=== PATIENT | male | born 1935 | race Caucasian/White ===

== ENCOUNTER 2019-01-31 03:08 | Inpatient (IN) | payer OTHER ==
[~2019-01-31] VITALS: Ht 175.3 cm; Wt 93.9 kg
[2019-01-31 03:14] VITALS: BP_SYST 98
[2019-01-31] MEDS ORDERED: ACETAMINOPHEN 500 MG TABLET PO ONE (03:30)
[2019-01-31] MEDS ORDERED: MUPI1OIN5 TP (03:44)
[2019-01-31] MEDS ORDERED: NOR10 PO (03:44)
[2019-01-31] MEDS ORDERED: NYSCR30 TP (03:44)
[2019-01-31] MEDS ORDERED: ESCI5TAB10 PO (03:44)
[2019-01-31] MEDS ORDERED: DIVA250T PO (03:44)
[2019-01-31] MEDS ORDERED: [UNRECOGNIZED DRUG - OTHER] TP (03:44)
[2019-01-31] MEDS ORDERED: IBUP-1969 PO (03:44)
[2019-01-31] MEDS ORDERED: LOSA50TA3 PO (03:44)
[2019-01-31] MEDS ORDERED: MEMA14CA PO (03:44)
[2019-01-31] MEDS ORDERED: CICL34.62 TP (03:44)
[2019-01-31] MEDS ORDERED: TAMS-11 PO (03:44)
[2019-01-31] MEDS ORDERED: [UNRECOGNIZED DRUG - CODE] TP (03:44)
[2019-01-31] MEDS ORDERED: ECON15CR2 TP (03:44)
[2019-01-31] MEDS ORDERED: GALA12TA4 PO (03:44)
[2019-01-31] MEDS ORDERED: DIVA500T4 PO (03:44)
[2019-01-31] MEDS ORDERED: CICL544C TP (03:44)
[2019-01-31] MEDS ORDERED: LORA-259 PO (03:44)
[2019-01-31] MEDS ORDERED: MORPHINE 4 MG/ML INJ. SYRINGE IVP ONE (04:00)
[2019-01-31] MEDS ORDERED: MORPHINE 4 MG/ML INJ. SYRINGE IM ONE (04:00)
[2019-01-31 04:53] LABS: HEMATOCRIT 36.4 % (36-54); HEMOGLOBIN 12.6 g/dL (14.0-18.0); MEAN CORPUSCULAR HEMOGLOBIN 32 pg (27-31); MEAN CORPUSCULAR HGB CONC 35 % (32-36); MEAN CORPUSCULAR VOLUME 93 fL (79.0-98.0); PLATELET COUNT (AUTO) 203 K/uL (130-430); RED BLOOD CELL COUNT(AUTO) 3.91 MIL/uL (4.2-6.2); WHITE BLOOD COUNT (AUTO) 16.6 K/uL (4.8-10.8)
[2019-01-31 04:59] LABS: ANION GAP 13 (5-15); CALCIUM 8.1 mg/dL (8.4-11.0); CHLORIDE 109 mmol/L (98-107); CREATININE 0.97 mg/dL (0.55-1.30); GLUCOSE 131 mg/dL (70-99); POTASSIUM 3.4 mmol/L (3.5-5.1); SODIUM SERUM 144 mmol/L (136-145); UREA NITROGEN, BLOOD 18 mg/dL (8-21)
[2019-01-31 05:05] LABS: ALANINE AMINOTRANSFERASE 14 U/L (12-78); ALBUMIN 2.6 g/dL (3.4-4.8); ASPARTATE AMINOTRANSFERASE 15 U/L (10-37); TOTAL BILIRUBIN 0.4 mg/dL (0.0-1.0)
[2019-01-31 05:16] LABS: ATYPICAL LYMPHOCYTES % 0 % (0-0); BAND % (MANUAL) 7 % (0-6); LYMPHOCYTES % (MANUAL) 7 % (20-46); MONOCYTES % (MANUAL) 5 % (0-11)
[2019-01-31 05:17] LABS: BASOPHILS % (MANUAL) 0 % (0-2); EOSINOPHILS % (MANUAL) 0 % (0-7); METAMYELOCYTES % 1 % (0-0)
[2019-01-31 06:08] VITALS: BP_SYST 163
[2019-01-31] MEDS ORDERED: ZOLPIDEM TARTRATE 5 MG TABLET PO PRN (06:30)
[2019-01-31] MEDS ORDERED: POTASSIUM CHLORIDE 20 MEQ TAB.PRT.SR PO PRN (06:30)
[2019-01-31] MEDS ORDERED: DOCUSATE SODIUM 100 MG CAPSULE PO PRN (06:30)
[2019-01-31] MEDS ORDERED: MAGNESIUM SULFATE 50 ML IV PRN (06:30)
[2019-01-31] MEDS ORDERED: LORazepam 2 MG/ML VIAL IVP PRN (06:30)
[2019-01-31] MEDS ORDERED: ACETAMINOPHEN 325 MG TABLET PO PRN (06:30)
[2019-01-31] MEDS ORDERED: MUPIROCIN 2% TOPICAL OINTMENT 22 GM NS PRN (06:30)
[2019-01-31] MEDS ORDERED: MORPHINE 2 MG/ML INJ. SYRINGE IVP PRN (06:30)
[2019-01-31] MEDS ORDERED: ONDANSETRON HCL 4 MG/2 ML VIAL IVP PRN (06:30)
[2019-01-31 08:00] VITALS: BP_SYST 136
[2019-01-31] MEDS: MEMANTINE HCL 5 MG TABLET PO SCH ×2 (08:49→21:08)
[2019-01-31] MEDS: NACL 0.9% 1,000 ML IV SCH ×2 (08:49→21:08)
[2019-01-31] MEDS: amLODIPine BESYLATE 10 MG TABLET PO SCH (08:51)
[2019-01-31] MEDS: CITALOPRAM HYDROBROMIDE 20 MG TABLET PO SCH (08:52)
[2019-01-31] MEDS: GALANTAMINE HYDROBROMIDE 4 MG TABLET PO SCH ×2 (08:52→21:07)
[2019-01-31] MEDS: LOSARTAN POTASSIUM 50 MG TABLET (COZAAR) PO SCH (08:53)
[2019-01-31] MEDS: HEPARIN SODIUM,PORCINE 5000 UNITS/ML VIAL SUBCUT SCH ×2 (08:56→21:00)
[2019-01-31] MEDS: MORPHINE 2 MG/ML INJ. SYRINGE IVP PRN ×3 (09:18→19:02)
[2019-01-31 12:00] VITALS: BP_SYST 155
[2019-01-31] MEDS ORDERED: COMMUNICATION ORDER XX ONE (13:45)
[2019-01-31 17:05] VITALS: BP_SYST 142
[2019-01-31 19:27] LABS: INR 1.2 (0.80-1.20); PROTHROMBIN TIME 12.1 SECS (9.5-12.5)
[2019-01-31 19:50] VITALS: BP_SYST 145
[2019-01-31] MEDS: TAMSULOSIN HCL 0.4 MG CAP PO SCH (21:07)
[2019-01-31] MEDS: DIVALPROEX SODIUM 500 MG TAB.SR.24H (DEPAKOTE ER) PO SCH (21:08)
[2019-02-01] VITALS: BP_SYST 151
[2019-02-01 02:18] VITALS: BP_SYST 151; BP_SYST 161
[2019-02-01] MEDS: MORPHINE 2 MG/ML INJ. SYRINGE IVP PRN ×2 (06:05→22:58)
[2019-02-01 06:32] LABS: BASOPHILS % (AUTO) 0.3 % (0.0-2.0); EOSINOPHILS % (AUTO) 0.2 % (0.0-4.0); HEMATOCRIT 31.8 % (36-54); HEMOGLOBIN 10.9 g/dL (14.0-18.0); LYMPHOCYTES # (AUTO) 1.2 K/uL (1.0-5.5); LYMPHOCYTES % (AUTO) 12.9 % (20.5-51.5); MEAN CORPUSCULAR HEMOGLOBIN 33 pg (27-31); MEAN CORPUSCULAR HGB CONC 34 % (32-36); MEAN CORPUSCULAR VOLUME 96 fL (79.0-98.0); MONOCYTES # (AUTO) 0.9 K/uL (0.0-1.0); MONOCYTES % (AUTO) 9.2 % (1.7-9.3); NEUTROPHILS # (AUTO) 7.3 K/uL (1.8-7.7); NEUTROPHILS % (AUTO) 77.4 % (40.0-70.0); PLATELET COUNT (AUTO) 168 K/uL (130-430); RED BLOOD CELL COUNT(AUTO) 3.33 MIL/uL (4.2-6.2); RED CELL DISTRIBUTION WIDTH 14.2 % (9.0-15.0); WHITE BLOOD COUNT (AUTO) 9.4 K/uL (4.8-10.8)
[2019-02-01 06:49] LABS: CALCIUM 8.1 mg/dL (8.4-11.0); CHLORIDE 109 mmol/L (98-107); CREATININE 0.77 mg/dL (0.55-1.30); GLUCOSE 102 mg/dL (70-99); POTASSIUM 4.1 mmol/L (3.5-5.1); SODIUM SERUM 141 mmol/L (136-145); UREA NITROGEN, BLOOD 17 mg/dL (8-21)
[2019-02-01 07:26] LABS: ANION GAP < 3 (5-15)
[2019-02-01 08:00] VITALS: BP_SYST 147
[2019-02-01] MEDS: CITALOPRAM HYDROBROMIDE 20 MG TABLET PO SCH (08:21)
[2019-02-01] MEDS: MEMANTINE HCL 5 MG TABLET PO SCH ×2 (08:22→22:17)
[2019-02-01] MEDS: LOSARTAN POTASSIUM 50 MG TABLET (COZAAR) PO SCH (08:22)
[2019-02-01] MEDS: amLODIPine BESYLATE 10 MG TABLET PO SCH (08:22)
[2019-02-01] MEDS: GALANTAMINE HYDROBROMIDE 4 MG TABLET PO SCH ×2 (08:23→22:25)
[2019-02-01] MEDS ORDERED: BUPIVACAINE /DEX PF 0.75% SPINAL 2 ML AMP INJ ONE (09:55)
[2019-02-01] MEDS ORDERED: POLYMYXIN 500,000/BACIT.10,000 UNITS in NS IRR 1 L IR ONE (09:55)
[2019-02-01] MEDS ORDERED: MIDAZOLAM HCL 5 MG/5 ML VIAL IVP ONE (09:55)
[2019-02-01] MEDS ORDERED: PROPOFOL 200MG/ 20ML VIAL (DIPRIVAN) IV ONE (09:55)
[2019-02-01] MEDS ORDERED: CEFAZOLIN 2 GM IVPB PREMIX 50 ML IV ONE (09:55)
[2019-02-01] MEDS ORDERED: MORPHINE SULFATE 10MG/10ML PF AMP EP ONE (09:55)
[2019-02-01] MEDS ORDERED: LR 1,000 ML IV.SOLN IV ONE (09:55)
[2019-02-01] MEDS ORDERED: MORPHINE SULFATE 10MG/10ML PF AMP SP SCH (11:00)
[2019-02-01] MEDS ORDERED: fentaNYL CITRATE/PF 100 MCG/2 ML AMP IVP PRN ×2 (11:00)
[2019-02-01] MEDS ORDERED: KETOROLAC TROMETHAMINE 60 MG/2 ML VIAL IM PRN (11:00)
[2019-02-01] MEDS ORDERED: NALBUPHINE HCL 10 MG/ML AMP IVP PRN (11:00)
[2019-02-01] MEDS ORDERED: ONDANSETRON HCL 4 MG/2 ML VIAL IVP PRN (11:00)
[2019-02-01] MEDS ORDERED: NALOXONE HCL 0.4 MG/ML AMP (NARCAN) IVP PRN ×2 (11:00)
[2019-02-01] MEDS: NACL 0.9% 1,000 ML IV SCH (11:06)
[2019-02-01 14:33] LABS: BILIRUBIN,URINE NEGATIVE (NEGATIVE); BLOOD, URINE 3+ (NEGATIVE); CLARITY/URINE CLEAR (CLEAR); COLOR,URINE YELLOW (YELLOW); GLUCOSE,URINE NEGATIVE (NEGATIVE); KETONES,URINE NEGATIVE (NEGATIVE); LEUKOCYTE ESTERASE ,URINE 1+ (NEGATIVE); NITRITE, URINE NEGATIVE (NEGATIVE); PH,URINE 5.5 (5.0-8.0); PROTEIN URINE 1+ (NEGATIVE)
[2019-02-01 14:43] LABS: BACTERIA,URINE FEW /HPF (None Seen); MUCUS,URINE 1+ /LPF (None Seen); WBC,URINE 20-50 /HPF (0-3)
[2019-02-01 16:08] VITALS: BP_SYST 120
[2019-02-01 22:08] VITALS: BP_SYST 135
[2019-02-01] MEDS: DIVALPROEX SODIUM 500 MG TAB.SR.24H (DEPAKOTE ER) PO SCH (22:16)
[2019-02-01] MEDS: TAMSULOSIN HCL 0.4 MG CAP PO SCH (22:17)
[2019-02-01] MEDS: DIPHENHYDRAMINE INJ 50 MG/ML VIAL IVP PRN (23:00)
[2019-02-02] VITALS (7 sets, daily range): BP systolic 122–147
[2019-02-02] MEDS: NACL 0.9% 1,000 ML IV SCH ×3 (00:09→20:52)
[2019-02-02] MEDS: DIPHENHYDRAMINE INJ 50 MG/ML VIAL IVP PRN (04:27)
[2019-02-02] MEDS: MORPHINE 2 MG/ML INJ. SYRINGE IVP PRN ×4 (04:27→22:30)
[2019-02-02 07:24] LABS: ANION GAP 4 (5-15); CALCIUM 7.8 mg/dL (8.4-11.0); CHLORIDE 110 mmol/L (98-107); CREATININE 1.07 mg/dL (0.55-1.30); GLUCOSE 88 mg/dL (70-99); SODIUM SERUM 138 mmol/L (136-145); UREA NITROGEN, BLOOD 23 mg/dL (8-21)
[2019-02-02 08:45] LABS: BASOPHILS # (AUTO) 0.2 K/uL (0.0-0.2); BASOPHILS % (AUTO) 0.9 % (0.0-2.0); EOSINOPHILS % (AUTO) 0.3 % (0.0-4.0); HEMATOCRIT 26.7 % (36-54); HEMOGLOBIN 9.1 g/dL (14.0-18.0); LYMPHOCYTES # (AUTO) 1.6 K/uL (1.0-5.5); LYMPHOCYTES % (AUTO) 9.3 % (20.5-51.5); MEAN CORPUSCULAR HEMOGLOBIN 33 pg (27-31); MEAN CORPUSCULAR HGB CONC 34 % (32-36); MEAN CORPUSCULAR VOLUME 95 fL (79.0-98.0); MONOCYTES # (AUTO) 1.5 K/uL (0.0-1.0); MONOCYTES % (AUTO) 8.8 % (1.7-9.3); NEUTROPHILS # (AUTO) 13.6 K/uL (1.8-7.7); NEUTROPHILS % (AUTO) 80.7 % (40.0-70.0); PLATELET COUNT (AUTO) 174 K/uL (130-430); RED CELL DISTRIBUTION WIDTH 14.4 % (9.0-15.0); WHITE BLOOD COUNT (AUTO) 16.9 K/uL (4.8-10.8)
[2019-02-02] MEDS: GALANTAMINE HYDROBROMIDE 4 MG TABLET PO SCH ×2 (09:09→20:51)
[2019-02-02] MEDS: MEMANTINE HCL 5 MG TABLET PO SCH ×2 (09:09→20:50)
[2019-02-02] MEDS: CITALOPRAM HYDROBROMIDE 20 MG TABLET PO SCH (09:09)
[2019-02-02] MEDS: LOSARTAN POTASSIUM 50 MG TABLET (COZAAR) PO SCH (09:10)
[2019-02-02] MEDS: amLODIPine BESYLATE 10 MG TABLET PO SCH (09:10)
[2019-02-02] MEDS: HEPARIN SODIUM,PORCINE 5000 UNITS/ML VIAL SUBCUT SCH ×2 (09:11→20:51)
[2019-02-02] MEDS: cefTRIAXone 1 GM in D5W 50 ML IV SCH (10:21)
[2019-02-02] MEDS: DIVALPROEX SODIUM 500 MG TAB.SR.24H (DEPAKOTE ER) PO SCH (20:50)
[2019-02-02] MEDS: TAMSULOSIN HCL 0.4 MG CAP PO SCH (20:50)
[2019-02-03] MEDS: MORPHINE 2 MG/ML INJ. SYRINGE IVP PRN ×4 (04:14→21:23)
[2019-02-03 06:56] LABS: BASOPHILS % (AUTO) 0.2 % (0.0-2.0); EOSINOPHILS % (AUTO) 0.4 % (0.0-4.0); HEMATOCRIT 24.9 % (36-54); HEMOGLOBIN 8.6 g/dL (14.0-18.0); LYMPHOCYTES # (AUTO) 1.4 K/uL (1.0-5.5); LYMPHOCYTES % (AUTO) 12.5 % (20.5-51.5); MEAN CORPUSCULAR HEMOGLOBIN 33 pg (27-31); MEAN CORPUSCULAR HGB CONC 34 % (32-36); MEAN CORPUSCULAR VOLUME 96 fL (79.0-98.0); MONOCYTES # (AUTO) 1.1 K/uL (0.0-1.0); MONOCYTES % (AUTO) 10.3 % (1.7-9.3); NEUTROPHILS # (AUTO) 8.5 K/uL (1.8-7.7); NEUTROPHILS % (AUTO) 76.6 % (40.0-70.0); PLATELET COUNT (AUTO) 171 K/uL (130-430); RED CELL DISTRIBUTION WIDTH 14.5 % (9.0-15.0); WHITE BLOOD COUNT (AUTO) 11.1 K/uL (4.8-10.8)
[2019-02-03 06:57] LABS: CALCIUM 7.3 mg/dL (8.4-11.0); CHLORIDE 110 mmol/L (98-107); CREATININE 0.83 mg/dL (0.55-1.30); GLUCOSE 87 mg/dL (70-99); POTASSIUM 3.5 mmol/L (3.5-5.1); SODIUM SERUM 145 mmol/L (136-145); UREA NITROGEN, BLOOD 20 mg/dL (8-21)
[2019-02-03 07:04] LABS: ANION GAP 8 (5-15)
[2019-02-03 08:00] VITALS: BP_SYST 129
[2019-02-03] MEDS: GALANTAMINE HYDROBROMIDE 4 MG TABLET PO SCH ×2 (08:58→21:27)
[2019-02-03] MEDS: amLODIPine BESYLATE 10 MG TABLET PO SCH (08:59)
[2019-02-03] MEDS: MEMANTINE HCL 5 MG TABLET PO SCH ×2 (08:59→21:26)
[2019-02-03] MEDS: LOSARTAN POTASSIUM 50 MG TABLET (COZAAR) PO SCH (08:59)
[2019-02-03] MEDS: CITALOPRAM HYDROBROMIDE 20 MG TABLET PO SCH (09:00)
[2019-02-03] MEDS: HEPARIN SODIUM,PORCINE 5000 UNITS/ML VIAL SUBCUT SCH ×2 (09:01→21:29)
[2019-02-03] MEDS: cefTRIAXone 1 GM in D5W 50 ML IV SCH (09:03)
[2019-02-03 12:54] VITALS: BP_SYST 123
[2019-02-03] MEDS: NACL 0.9% 1,000 ML IV SCH (14:30)
[2019-02-03 17:16] VITALS: BP_SYST 130
[2019-02-03 20:00] VITALS: BP_SYST 141
[2019-02-03] MEDS: TAMSULOSIN HCL 0.4 MG CAP PO SCH (21:26)
[2019-02-03] MEDS: DIVALPROEX SODIUM 500 MG TAB.SR.24H (DEPAKOTE ER) PO SCH (21:26)
[2019-02-04 02:49] VITALS: BP_SYST 129
[2019-02-04] MEDS: MORPHINE 2 MG/ML INJ. SYRINGE IVP PRN ×2 (03:17→09:10)
[2019-02-04 06:22] LABS: ANION GAP 5 (5-15); CALCIUM 7.5 mg/dL (8.4-11.0); CHLORIDE 113 mmol/L (98-107); CREATININE 0.78 mg/dL (0.55-1.30); GLUCOSE 107 mg/dL (70-99); POTASSIUM 3.5 mmol/L (3.5-5.1); SODIUM SERUM 145 mmol/L (136-145); UREA NITROGEN, BLOOD 24 mg/dL (8-21)
[2019-02-04 06:35] LABS: BASOPHILS % (AUTO) 0.4 % (0.0-2.0); EOSINOPHILS # (AUTO) 0.1 K/uL (0.0-0.4); EOSINOPHILS % (AUTO) 0.8 % (0.0-4.0); HEMATOCRIT 24.3 % (36-54); HEMOGLOBIN 8.4 g/dL (14.0-18.0); LYMPHOCYTES % (AUTO) 11.5 % (20.5-51.5); MEAN CORPUSCULAR HEMOGLOBIN 33 pg (27-31); MEAN CORPUSCULAR HGB CONC 35 % (32-36); MEAN CORPUSCULAR VOLUME 95 fL (79.0-98.0); MONOCYTES # (AUTO) 0.9 K/uL (0.0-1.0); NEUTROPHILS # (AUTO) 6.7 K/uL (1.8-7.7); NEUTROPHILS % (AUTO) 77.3 % (40.0-70.0); PLATELET COUNT (AUTO) 206 K/uL (130-430); RED BLOOD CELL COUNT(AUTO) 2.55 MIL/uL (4.2-6.2); RED CELL DISTRIBUTION WIDTH 14.6 % (9.0-15.0); WHITE BLOOD COUNT (AUTO) 8.6 K/uL (4.8-10.8)
[2019-02-04] MEDS: NACL 0.9% 1,000 ML IV SCH (07:02)
[2019-02-04 08:07] VITALS: BP_SYST 155
[2019-02-04] MEDS: GALANTAMINE HYDROBROMIDE 4 MG TABLET PO SCH (09:17)
[2019-02-04] MEDS: CITALOPRAM HYDROBROMIDE 20 MG TABLET PO SCH (09:17)
[2019-02-04] MEDS: amLODIPine BESYLATE 10 MG TABLET PO SCH (09:18)
[2019-02-04] MEDS: MEMANTINE HCL 5 MG TABLET PO SCH (09:18)
[2019-02-04] MEDS: LOSARTAN POTASSIUM 50 MG TABLET (COZAAR) PO SCH (09:18)
[2019-02-04] MEDS: HEPARIN SODIUM,PORCINE 5000 UNITS/ML VIAL SUBCUT SCH (09:21)
[2019-02-04] MEDS: cefTRIAXone 1 GM in D5W 50 ML IV SCH (09:22)
[2019-02-04 12:16] VITALS: BP_SYST 147
[2019-02-04 13:17] VITALS: BP_SYST 147
[2019-02-04 16:57] VITALS: BP_SYST 141
[2019-02-04 18:38] VITALS: BP_SYST 129
== END 2019-02-04 18:48 | DRG 481 ==
LOC: SED 03:08 → SMU 05:16
PROVIDERS: ADMIT General Practice; ATTEND General Practice
PROC: 0QS704Z Reposition Left Upper Femur with Internal Fixation Device, Open Approach (ICD-10-PCS; principal; 2019-02-01 10:06)
DX: S72.142A Displaced intertrochanteric fracture of left femur, initial encounter for closed fracture (principal); N39.0 Urinary tract infection, site not specified; E44.0 Moderate protein-calorie malnutrition; I10 Essential (primary) hypertension; G30.9 Alzheimer's disease, unspecified; F02.80 Dementia in other diseases classified elsewhere, unspecified severity, without behavioral disturbance, psychotic disturbance, mood disturbance, and anxiety; M16.0 Bilateral primary osteoarthritis of hip; N40.0 Benign prostatic hyperplasia without lower urinary tract symptoms; Z77.22 Contact with and (suspected) exposure to environmental tobacco smoke (acute) (chronic); F41.9 Anxiety disorder, unspecified; W18.30XA Fall on same level, unspecified, initial encounter; F32.9 Major depressive disorder, single episode, unspecified; Z68.30 Body mass index [BMI] 30.0-30.9, adult; Z79.899 Other long term (current) drug therapy; Z87.891 Personal history of nicotine dependence; Y93.89 Activity, other specified; Y92.89 Other specified places as the place of occurrence of the external cause; Y99.8 Other external cause status
CPT/HCPCS: 36415; 71045; 73502; 76000; 80048; 80053; 81000-TC; 83036; 83735-TC; 85007; 85025; 85027; 85610-TC; 85730-TC; 86886; 86900; 86901; 87081; 93005; 93306; 96374; 97116-GP; 97530-GP; 99285; C1713; C1776; J0690; J0696; J1200; J1644; J1885; J2060; J2250; J2270; J2274; J2704; J3490; J7030; J7060; J7120

== ENCOUNTER 2019-04-02 19:37 | Emergency (ER) | payer OTHER ==
[~2019-04-02] VITALS: Ht 177.8 cm; Wt 90.7 kg
[~2019-04-02 19:37] MED LIST: CICL34.62 TP; CICL544C TP; DIVA250T PO; DIVA500T4 PO; ECON15CR13 TP; ESCI5TAB12 PO; GALA12TA4 PO; LORA-259 PO; LOSA50TA3 PO; MEMA14CA PO; MUPI1OIN5 TP; NOR10 PO; NYSCR30 TP; TAMS-11 PO; [UNRECOGNIZED DRUG - CODE] TP; [UNRECOGNIZED DRUG - OTHER] TP
[2019-04-02 19:43] VITALS: BP_SYST 124
--- NOTE | 2019-04-02 19:48 | NUR ---
Patient to ER bed 01 to gown for evaluation. Side rails up. Report given to ZONIA Marie.
--- NOTE | 2019-04-02 19:55 | NUR ---
Dr. Mcfarland at bedside.
[2019-04-02] MEDS ORDERED: NACL 0.9% 1,000 ML IV ONE (19:56)
--- NOTE | 2019-04-02 20:03 | NUR ---
Pt to x-ray via stretcher in stable condition.
--- NOTE | 2019-04-02 20:27 | NUR ---
Pt returns from radiology.
[2019-04-02 20:52] LABS: BASOPHILS # (AUTO) 0.1 K/uL (0.0-0.2); BASOPHILS % (AUTO) 0.6 % (0.0-2.0); EOSINOPHILS # (AUTO) 0.1 K/uL (0.0-0.4); EOSINOPHILS % (AUTO) 0.8 % (0.0-4.0); HEMATOCRIT 40.8 % (36-54); HEMOGLOBIN 14.1 g/dL (14.0-18.0); LYMPHOCYTES # (AUTO) 1.4 K/uL (1.0-5.5); LYMPHOCYTES % (AUTO) 16.5 % (20.5-51.5); MEAN CORPUSCULAR HEMOGLOBIN 33 pg (27-31); MEAN CORPUSCULAR HGB CONC 34 % (32-36); MEAN CORPUSCULAR VOLUME 94 fL (79.0-98.0); MONOCYTES # (AUTO) 0.5 K/uL (0.0-1.0); MONOCYTES % (AUTO) 6.2 % (1.7-9.3); NEUTROPHILS # (AUTO) 6.5 K/uL (1.8-7.7); NEUTROPHILS % (AUTO) 75.9 % (40.0-70.0); PLATELET COUNT (AUTO) 148 K/uL (130-430); RED BLOOD CELL COUNT(AUTO) 4.32 MIL/uL (4.2-6.2); RED CELL DISTRIBUTION WIDTH 15.1 % (9.0-15.0); WHITE BLOOD COUNT (AUTO) 8.5 K/uL (4.8-10.8)
[2019-04-02 21:07] LABS: INR 1.2 (0.80-1.20); PROTHROMBIN TIME 11.6 SECS (9.5-12.5)
[2019-04-02 21:08] LABS: ANION GAP 6 (5-15); CALCIUM 8.3 mg/dL (8.4-11.0); CHLORIDE 107 mmol/L (98-107); CREATININE 1.07 mg/dL (0.55-1.30); GLUCOSE 93 mg/dL (70-99); POTASSIUM 3.5 mmol/L (3.5-5.1); SODIUM SERUM 140 mmol/L (136-145); UREA NITROGEN, BLOOD 25 mg/dL (8-21)
[2019-04-02 21:15] LABS: ALANINE AMINOTRANSFERASE 23 U/L (12-78); ALBUMIN 2.7 g/dL (3.4-4.8); ASPARTATE AMINOTRANSFERASE 18 U/L (10-37); TOTAL BILIRUBIN 0.4 mg/dL (0.0-1.0)
--- NOTE | 2019-04-02 21:50 | NUR ---
Pt moved to ER bed 05.
--- NOTE | 2019-04-02 22:35 | NUR ---
Pt report called to RN at [facility].
[2019-04-02 22:44] VITALS: BP_SYST 126
--- NOTE | 2019-04-02 22:44 | NUR ---
Patient given written and verbal discharge instructions and verbalizes understanding. ER MD discussed with patient the results and treatment provided. Patient in stable condition. ID arm band removed. IV catheter removed intact and dressing applied, no active bleeding. Patient educated on pain management and to follow up with PMD. Pain Scale 2/10. Opportunity for questions provided and answered. Medication side effect fact sheet provided.
== END 2019-04-02 22:44 | disposition home or self-care (01) ==
LOC: SED 19:37
DX: S13.4XXA Sprain of ligaments of cervical spine, initial encounter (principal); M25.551 Pain in right hip; I10 Essential (primary) hypertension; Z79.899 Other long term (current) drug therapy; W07.XXXA Fall from chair, initial encounter; Y93.89 Activity, other specified; Y92.89 Other specified places as the place of occurrence of the external cause; Y99.8 Other external cause status
CPT/HCPCS: 36415; 71045; 72125; 72170; 80053; 84484; 85025; 85610; 93005; 99284; J7030

== ENCOUNTER 2019-06-30 16:45 | Emergency (ER) | payer OTHER, MEDICAID ==
[~2019-06-30] VITALS: Ht 177.8 cm; Wt 90.7 kg
[2019-06-30 16:58] VITALS: BP_SYST 122
--- NOTE | 2019-06-30 18:00 | NUR ---
Patient to ER bed 2 to gown for evaluation. Side rails up.
--- NOTE | 2019-06-30 18:05 | NUR ---
Patient brought in by ambulance in the ED c/o Left shoulder pain post mechanical fall 2 weeks ago. Denied any chest pain or shortness of breath. Denied any fevers, chills, nausea or vomiting. Patient is alert and oriented x1, respirations even and unlabored, repeatedly chanting "Lord, help me help myself". VSS, pain level 610. Informed of approximate wait time.
--- NOTE | 2019-06-30 18:12 | NUR ---
X-ray done at bedside as ordered by Dr. Graves. Patient tolerated the procedure well.
--- NOTE | 2019-06-30 18:26 | NUR ---
ER Dr. Graves at bedside examining patient.
--- NOTE | 2019-06-30 18:45 | NUR ---
Patient is resting comfortably in bed, respirations even and unlabored.
--- NOTE | 2019-06-30 19:26 | NUR ---
Report given and care transferred to ZONIA Kidd.
--- NOTE | 2019-06-30 19:30 | NUR ---
PT REFUSED SLING OFFERED. BENEFITS OF SLING EXPLAINED. STILL REFUSED.
--- NOTE | 2019-06-30 20:05 | NUR ---
Patient given written and verbal discharge instructions , BUT DOES NOT SEEM TO UNDERSTAND ER DR PEPITO GREY discussed with patient the results and treatment provided. Patient in stable condition. ID arm band removed. Rx of IBUPROFEN given. Patient educated on pain management and to follow up with PMD. Pain Scale . Opportunity for questions provided and answered. Medication side effect fact sheet provided.
--- NOTE | 2019-06-30 20:25 | NUR ---
S TRANSPORT ARRANGED BACK TO [facility]. ETA 2125.
--- NOTE | 2019-06-30 21:06 | NUR ---
Patient given written and verbal discharge instructions and verbalizes understanding. ER MD discussed with patient the results and treatment provided. Patient in stable condition. ID arm band removed. No Rx given. Patient educated on pain management and to follow up with PMD. Pain Scale 0/10. Opportunity for questions provided and answered. Medication side effect fact sheet provided. BLS crew here to take pt back to [facility]. Pt refused arm sling.
[2019-06-30 21:08] VITALS: BP_SYST 144
--- NOTE | 2019-06-30 21:10 | NUR ---
[facility] called. Notified of pt being transported back to them.
== END 2019-06-30 21:08 | disposition home or self-care (01) ==
LOC: SED 16:45
DX: S42.002A Fracture of unspecified part of left clavicle, initial encounter for closed fracture (principal); K21.9 Gastro-esophageal reflux disease without esophagitis; I10 Essential (primary) hypertension; Z79.899 Other long term (current) drug therapy; W01.0XXA Fall on same level from slipping, tripping and stumbling without subsequent striking against object, initial encounter; Y93.89 Activity, other specified; Y92.89 Other specified places as the place of occurrence of the external cause; Y99.8 Other external cause status
CPT/HCPCS: 72170-TC; 73030; 99283